=== PATIENT | female | born 1980 | race Hispanic/Latino ===

== ENCOUNTER 2024-05-25 03:34 | Inpatient (IN) | payer SELFPAY ==
[~2024-05-25] VITALS: Ht 152.4 cm; Wt 77.1 kg
[2024-05-25] VITALS (11 sets, daily range): BP systolic 99–142; BP diastolic 56–78; PULSE 67–92; RESP 14–20; TEMP 97.1–209.3; O2SAT 97–100
[~2024-05-25 03:34] MED LIST: AZITHROMYCIN250 MG PO; GLIPIZIDE10 MG PO; KEPPRA500 MG PO; LEVEMIR100 UNIT/1 SQ; METFORMIN HCL1000 MG PO; NEXIUM40 MG PO; SEROQUEL25 MG PO; TRAZODONE HCL50 MG PO; ULTRAM50 MG PO; XANAX0.5 MG PO
[2024-05-25] MEDS: ACETAMINOPHEN 1000 MG/100 ML IV STA (04:23)
[2024-05-25 04:24] LABS: BASOPHILS % 0.2 % (0.0-1.0); EOSINOPHILS # (AUTO) 0.1 (0.0-0.4); EOSINOPHILS % 1.4 % (0.0-6.0); HEMATOCRIT 36.3 % (34.2-44.1); HEMOGLOBIN 13.1 g/dL (12.0-16.0); LYMPHOCYTES # (AUTO) 0.9 (1.0-3.2); LYMPHOCYTES % 13.8 % (18.0-39.1); MEAN CORPUSCULAR HEMOGLOBIN 31.2 pg (28-32); MEAN CORPUSCULAR HGB CONC 36.1 g/dL (31-35); MEAN CORPUSCULAR VOLUME 86.4 fL (81-99); MONOCYTES # (AUTO) 0.3 (0.2-0.8); MONOCYTES % 4.6 % (4.4-11.3); NEUTROPHILS # (AUTO) 5.2 (2.1-6.9); NEUTROPHILS % 79.7 % (38.7-80.0); PLATELET COUNT 147 x10e3/uL (140-360); RED CELL DISTRIBUTION WIDTH 12.4 % (11.7-14.4); WHITE BLOOD COUNT 6.47 x10e3/uL (4.8-10.8)
[2024-05-25] MEDS ORDERED: SODIUM CHLORIDE 0.9% 1000ML 1,000 ML ONE (04:24)
[2024-05-25] MEDS: ONDANSETRON HCL INJ 2MG/ML 2ML 2 MG/ML VIAL IV STA (04:24)
[2024-05-25] MEDS: SODIUM CHLORIDE 0.9% 1000ML 1,000 ML IV ONE (04:24)
[2024-05-25] MEDS: KETOROLAC TROMETHAMINE 30 MG/ML VIAL IV STA (04:24)
[2024-05-25 04:37] LABS: ALBUMIN 4.1 g/dL (3.5-5.0); ALBUMIN/GLOBULIN RATIO 1.1 (0.8-2.0); ANION GAP 16.7 mmol/L (8-16); BILIRUBIN,TOTAL 1.3 mg/dL (0.2-1.2); CALCIUM 9.1 mg/dL (8.4-10.2); CREATININE, SERUM 0.71 mg/dL (0.57-1.11); POTASSIUM 3.7 mmol/L (3.5-5.1); TOTAL PROTEIN 7.8 g/dL (6.5-8.1)
[2024-05-25 04:43] LABS: BILIRUBIN,URINE SMALL (NEGATIVE); CLARITY,URINE SL CLOUDY (CLEAR); COLOR,URINE YELLOW (YELLOW); GLUCOSE, URINE 2+ (NEGATIVE); KETONES,URINE TRACE (NEGATIVE); LEUKOCYTE ESTERASE ,URINE NEGATIVE (NEGATIVE); NITRITE,URINE NEGATIVE (NEGATIVE); PH,URINE 6 (5 - 7); PROTEIN,URINE DIPSTICK 2+ (NEGATIVE)
[2024-05-25 04:45] LABS: RBC,URINE 0-5 /HPF (0-5)
[2024-05-25 04:46] LABS: BACTERIA,URINE MANY /HPF; EPITHELIAL CELLS,URINE MANY /LPF
[2024-05-25 04:48] LABS: CORONAVIRUS COVID-19 AG NEGATIVE (NEGATIVE); INFLUENZA A AG NEGATIVE (NEGATIVE); INFLUENZA B AG NEGATIVE (NEGATIVE)
[2024-05-25] MEDS: HALOPERIDOL LACTATE 5 MG/ML VIAL IV ONE (05:52)
[2024-05-25] MEDS ORDERED: DEXTROSE 50% SYRINGE 50 ML IV PRN ×2 (06:00→12:15)
[2024-05-25] MEDS ORDERED: IOPAMIDOL 370 MG/ML 100 ML INFUS..BTL INJ ONE (06:10)
[2024-05-25] MEDS: SODIUM CHLORIDE 0.9% 1000ML 1,000 ML IV SCH (06:37)
[2024-05-25] MEDS: INSULIN REGULAR, HUMAN 100 UNIT/1 ML SQ SCH (09:25)
[2024-05-25] MEDS ORDERED: POTASSIUM CHLORIDE 20 MEQ TAB CR PO PRN (12:15)
[2024-05-25] MEDS ORDERED: DOCUSATE SODIUM 100 MG CAP PO PRN (12:15)
[2024-05-25] MEDS ORDERED: MELATONIN 5 MG TABLET PO PRN (12:15)
[2024-05-25] MEDS ORDERED: HYDRALAZINE HCL 20 MG/ML VIAL IV PRN (12:15)
[2024-05-25] MEDS ORDERED: ALBUTEROL/IPRATROPIUM 3 ML NEB NEB PRN (12:15)
[2024-05-25] MEDS ORDERED: DIPHENHYDRAMINE HCL 25 MG CAP PO PRN (12:15)
[2024-05-25] MEDS ORDERED: BENZONATATE 100 MG CAP PO PRN (12:15)
[2024-05-25] MEDS ORDERED: LIDOCAINE 4% PATCH TP PRN (12:15)
[2024-05-25] MEDS ORDERED: SIMETHICONE 80 MG CHEW PO PRN (12:15)
[2024-05-25] MEDS: ONDANSETRON HCL INJ 2MG/ML 2ML 2 MG/ML VIAL IV PRN (13:23)
[2024-05-25] MEDS: KETOROLAC TROMETHAMINE 30 MG/ML VIAL IV PRN (13:24)
[2024-05-25] MEDS: ENOXAPARIN SOD INJ 40 MG/0.4 ML SYR SC SCH (16:16)
[2024-05-25] MEDS: LEVETIRACETAM 500 MG TAB PO SCH (16:16)
[2024-05-25] MEDS: METOCLOPRAMIDE HCL 10 MG/2ML VIAL IV SCH (16:30)
[2024-05-25] MEDS ORDERED: LEVETIRACETAM 500 MG TAB PO SCH (17:00)
[2024-05-25] MEDS: KETOROLAC TROMETHAMINE 30 MG/ML VIAL IV SCH (18:33)
[2024-05-25] MEDS: TRAZODONE HCL 50 MG TAB PO SCH (21:11)
[2024-05-26] VITALS (10 sets, daily range): BP systolic 94–138; BP diastolic 57–78; PULSE 65–72; RESP 18–19; TEMP 97.4–98.6; O2SAT 98–100
[2024-05-26 05:44] LABS: BASOPHILS % 0.2 % (0.0-1.0); EOSINOPHILS # (AUTO) 0.2 (0.0-0.4); EOSINOPHILS % 5.3 % (0.0-6.0); HEMATOCRIT 31.1 % (34.2-44.1); HEMOGLOBIN 11.2 g/dL (12.0-16.0); LYMPHOCYTES # (AUTO) 1.8 (1.0-3.2); LYMPHOCYTES % 41.7 % (18.0-39.1); MEAN CORPUSCULAR HEMOGLOBIN 31.6 pg (28-32); MEAN CORPUSCULAR VOLUME 87.9 fL (81-99); MONOCYTES # (AUTO) 0.3 (0.2-0.8); MONOCYTES % 7.4 % (4.4-11.3); NEUTROPHILS % 45.2 % (38.7-80.0); PLATELET COUNT 124 x10e3/uL (140-360); RED BLOOD COUNT 3.54 x10e6/uL (3.6-5.1); RED CELL DISTRIBUTION WIDTH 12.7 % (11.7-14.4); WHITE BLOOD COUNT 4.34 x10e3/uL (4.8-10.8)
[2024-05-26 06:16] LABS: ALBUMIN 3.5 g/dL (3.5-5.0); ALBUMIN/GLOBULIN RATIO 1.2 (0.8-2.0); ANION GAP 11.6 mmol/L (8-16); BILIRUBIN,TOTAL 0.7 mg/dL (0.2-1.2); CALCIUM 8.5 mg/dL (8.4-10.2); CREATININE, SERUM 0.58 mg/dL (0.57-1.11); POTASSIUM 3.6 mmol/L (3.5-5.1); TOTAL PROTEIN 6.5 g/dL (6.5-8.1)
[2024-05-26] MEDS: PANTOPRAZOLE SOD 40 MG TABEC PO SCH (09:10)
[2024-05-26] MEDS: METOCLOPRAMIDE HCL 10 MG/2ML VIAL IV SCH (09:18)
[2024-05-26] MEDS: ACETAMINOPHEN 325 MG TAB PO PRN (12:22)
[2024-05-26] MEDS: SUMATRIPTAN SUCCINATE 6 MG/0.5 ML VIAL SC ONE (15:17)
[2024-05-27] VITALS (10 sets, daily range): BP systolic 100–122; BP diastolic 58–72; PULSE 64–75; RESP 18–20; TEMP 97.4–98; O2SAT 98–100
[2024-05-27] MEDS: Morphine 4mg INJECTION 4 MG/ML INJ IV PRN (00:24)
[2024-05-27 05:42] LABS: BASOPHILS % 0.4 % (0.0-1.0); EOSINOPHILS # (AUTO) 0.3 (0.0-0.4); HEMATOCRIT 31.2 % (34.2-44.1); HEMOGLOBIN 10.9 g/dL (12.0-16.0); LYMPHOCYTES # (AUTO) 2.5 (1.0-3.2); LYMPHOCYTES % 43.5 % (18.0-39.1); MEAN CORPUSCULAR HEMOGLOBIN 30.9 pg (28-32); MEAN CORPUSCULAR HGB CONC 34.9 g/dL (31-35); MEAN CORPUSCULAR VOLUME 88.4 fL (81-99); MONOCYTES # (AUTO) 0.3 (0.2-0.8); NEUTROPHILS # (AUTO) 2.5 (2.1-6.9); NEUTROPHILS % 43.9 % (38.7-80.0); PLATELET COUNT 130 x10e3/uL (140-360); RED BLOOD COUNT 3.53 x10e6/uL (3.6-5.1); RED CELL DISTRIBUTION WIDTH 12.8 % (11.7-14.4); WHITE BLOOD COUNT 5.63 x10e3/uL (4.8-10.8)
[2024-05-27 06:12] LABS: ANION GAP 11.6 mmol/L (8-16); CALCIUM 8.6 mg/dL (8.4-10.2); CREATININE, SERUM 0.63 mg/dL (0.57-1.11); POTASSIUM 3.6 mmol/L (3.5-5.1)
[2024-05-27] MEDS ORDERED: IOPAMIDOL 370 MG/ML 100 ML INFUS..BTL INJ ONE (18:49)
[2024-05-27] MEDS: SUMATRIPTAN SUCCINATE 6 MG/0.5 ML VIAL SC ONE (22:32)
[2024-05-28] VITALS (11 sets, daily range): BP systolic 119–138; BP diastolic 60–73; PULSE 63–84; RESP 17–18; TEMP 97.4–98.4; O2SAT 96–100
[2024-05-28] MEDS: SUMATRIPTAN SUCCINATE 6 MG/0.5 ML VIAL SC ONE (15:07)
[2024-05-28] MEDS: INSULIN GLARGINE 100 UNITS/ML VIAL SQ SCH (21:49)
[2024-05-29] VITALS (12 sets, daily range): BP systolic 106–149; BP diastolic 62–87; PULSE 62–82; RESP 16–18; TEMP 97.5–98.6; O2SAT 95–100
[2024-05-29] MEDS ORDERED: CYCLOBENZAPRINE HCL 10 MG TAB PO SCH (00:45)
[2024-05-29] MEDS: NAPROXEN 250 MG TAB PO ONE (01:06)
[2024-05-29] MEDS: CYCLOBENZAPRINE HCL 10 MG TAB PO ONE (01:06)
[2024-05-29 05:10] LABS: BASOPHILS % 0.3 % (0.0-1.0); EOSINOPHILS # (AUTO) 0.3 (0.0-0.4); EOSINOPHILS % 5.3 % (0.0-6.0); HEMATOCRIT 32.5 % (34.2-44.1); HEMOGLOBIN 11.4 g/dL (12.0-16.0); LYMPHOCYTES # (AUTO) 2.3 (1.0-3.2); LYMPHOCYTES % 40.2 % (18.0-39.1); MEAN CORPUSCULAR HEMOGLOBIN 31.1 pg (28-32); MEAN CORPUSCULAR HGB CONC 35.1 g/dL (31-35); MEAN CORPUSCULAR VOLUME 88.6 fL (81-99); MONOCYTES # (AUTO) 0.3 (0.2-0.8); MONOCYTES % 5.9 % (4.4-11.3); NEUTROPHILS # (AUTO) 2.8 (2.1-6.9); NEUTROPHILS % 48.1 % (38.7-80.0); PLATELET COUNT 147 x10e3/uL (140-360); RED BLOOD COUNT 3.67 x10e6/uL (3.6-5.1); RED CELL DISTRIBUTION WIDTH 12.2 % (11.7-14.4)
[2024-05-29 05:25] LABS: ANION GAP 13.5 mmol/L (8-16); CALCIUM 8.7 mg/dL (8.4-10.2); CREATININE, SERUM 0.63 mg/dL (0.57-1.11); POTASSIUM 3.5 mmol/L (3.5-5.1)
[2024-05-29] MEDS: CYCLOBENZAPRINE HCL 10 MG TAB PO SCH (08:51)
[2024-05-29] MEDS: NAPROXEN 250 MG TAB PO SCH (09:45)
[2024-05-29 17:55] LABS: BILIRUBIN,URINE NEGATIVE (NEGATIVE); CLARITY,URINE HAZY (CLEAR); COLOR,URINE YELLOW (YELLOW); GLUCOSE, URINE NEGATIVE (NEGATIVE); KETONES,URINE NEGATIVE (NEGATIVE); LEUKOCYTE ESTERASE ,URINE NEGATIVE (NEGATIVE); NITRITE,URINE NEGATIVE (NEGATIVE); PH,URINE 6 (5 - 7); PROTEIN,URINE DIPSTICK NEGATIVE (NEGATIVE); URINE UROBILINOGEN 0.2 mg/dL (0.2 - 1)
[2024-05-29 17:56] LABS: BACTERIA,URINE FEW /HPF; EPITHELIAL CELLS,URINE FEW /LPF; RBC,URINE 0-5 /HPF (0-5); WBC,URINE (MAN) 0-5 /HPF (0-5)
[2024-05-29] MEDS: SUMATRIPTAN SUCCINATE 6 MG/0.5 ML VIAL SC ONE (20:09)
[2024-05-30] VITALS (7 sets, daily range): BP systolic 134–139; BP diastolic 81–91; PULSE 65–73; RESP 16–18; TEMP 98.1–98.3; O2SAT 97–100
[2024-05-30] MEDS ORDERED: CEPHALEXIN500 MG PO (14:14)
[2024-05-30] MEDS ORDERED: REGLAN5 MG PO (14:14)
[2024-05-30] MEDS ORDERED: DICYCLOMINE HCL10 MG PO (14:14)
[2024-05-30] MEDS ORDERED: KEPPRA500 MG PO (14:14)
[2024-05-30] MEDS ORDERED: PANTOPRAZOLE SO40 MG PO (14:14)
== END 2024-05-30 16:34 | disposition home or self-care (01) | DRG 690 ==
LOC: ER 03:50 → ERHOLD 05:46 → MED/SURG3 07:55 → OBSVTOIN 05-26 13:15
PROVIDERS: ADMIT Internal Medicine; ATTEND Internal Medicine
PROC: 02HV33Z Insertion of Infusion Device into Superior Vena Cava, Percutaneous Approach (ICD-10-PCS; principal; 2024-05-29)
DX: N39.0 Urinary tract infection, site not specified (principal); N17.9 Acute kidney failure, unspecified; N12 Tubulo-interstitial nephritis, not specified as acute or chronic; B96.20 Unspecified Escherichia coli [E. coli] as the cause of diseases classified elsewhere; E11.43 Type 2 diabetes mellitus with diabetic autonomic (poly)neuropathy; E86.0 Dehydration; A08.4 Viral intestinal infection, unspecified; F41.9 Anxiety disorder, unspecified; F32.A Depression, unspecified; G43.909 Migraine, unspecified, not intractable, without status migrainosus; G40.909 Epilepsy, unspecified, not intractable, without status epilepticus; Z11.52 Encounter for screening for COVID-19; E66.01 Morbid (severe) obesity due to excess calories; Z79.4 Long term (current) use of insulin; Z79.84 Long term (current) use of oral hypoglycemic drugs; Z86.73 Personal history of transient ischemic attack (TIA), and cerebral infarction without residual deficits; Z85.3 Personal history of malignant neoplasm of breast; Z90.11 Acquired absence of right breast and nipple; Z90.49 Acquired absence of other specified parts of digestive tract; Z90.710 Acquired absence of both cervix and uterus; Z88.1 Allergy status to other antibiotic agents; Z88.2 Allergy status to sulfonamides; Z88.5 Allergy status to narcotic agent
CPT/HCPCS: 36415; 71045; 74177; 80048; 80053; 81001; 82948; 83036; 83690; 85025; 87086; 87186; 94799; 99284; G0378; J0696; J1630; J1650; J1885; J2270; J2405; J2470; J2765; J3030; J7030; Q9967